=== PATIENT | female | born 1960 | race African-American/Black ===

== ENCOUNTER 2019-09-12 08:38 | Emergency (ER) | payer OTHER ==
[2019-09-12 08:54] VITALS: BP 149/96; PULSE 90; TEMP 98.6; BMI 28.0
[2019-09-12] MEDS ORDERED: IBUPROFEN 600 MG TABLET (FP) PO ONE (09:18)
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
== END 2019-09-12 11:00 | disposition home or self-care (01) ==
LOC: JERFT 08:38
DX: S99.922A Unspecified injury of left foot, initial encounter (principal); V09.9XXA Pedestrian injured in unspecified transport accident, initial encounter; Y93.89 Activity, other specified; Y92.481 Parking lot as the place of occurrence of the external cause; I10 Essential (primary) hypertension
CPT/HCPCS: 73610-TC-RT-FY; 73630-TC-RT-FY; 99281-25